=== PATIENT | male | born 1950 | race Caucasian/White ===

== ENCOUNTER 2017-11-30 14:48 | Outpatient (CLI) | payer MEDICARE ==
--- NOTE | 2017-11-30 16:25 | Diagnostic Imaging Report ---
Indication: Cough Technique: 2 views of the chest Comparison: None Findings: Bands of atelectasis or scarring are seen in the left lung base. Lungs and pleural spaces are otherwise clear. Heart size is normal. Bones are unremarkable Impression: No acute process
== END 2017-11-30 16:48 | disposition home or self-care (01) ==
LOC: RAD 14:48
DX: R76.12 Nonspecific reaction to cell mediated immunity measurement of gamma interferon antigen response without active tuberculosis (principal); R05 Cough
CPT/HCPCS: 71046